=== PATIENT | male | born 1975 | race Caucasian/White ===

== ENCOUNTER 2019-02-23 19:22 | Inpatient (IN) | payer OTHER ==
[2019-02-23 20:54] LABS: ADD MAN DIFF? NO
[2019-02-23 20:55] LABS: WHITE BLOOD COUNT 9.7 10^3/ul (4.8-10.8)
[2019-02-23 20:55] LABS: ADD UMIC NO; BASOPHILS % 0.1 % (0.0-2.0); EOSINOPHILS % 0.4 % (0.0-7.0); HEMATOCRIT 48.4 % (42.0-52.0); HEMOGLOBIN 15.8 g/dl (14.0-18.0); LYMPHOCYTES # 1.8 10^3/ul (0.8-2.9); LYMPHOCYTES % 18.5 % (15.0-51.0); MEAN CORPUSCULAR HEMOGLOBIN 27.1 pg (29.0-33.0); MEAN CORPUSCULAR HGB CONC 32.6 g/dl (32.0-37.0); MEAN CORPUSCULAR VOLUME 82.9 fl (82.0-101.0); MEAN PLATELET VOLUME 9.3 fl (7.4-10.4); MONOCYTE # 0.5 10^3/ul (0.3-0.9); MONOCYTES % 5.1 % (0.0-11.0); NEUTROPHIL # 7.3 10^3/ul (1.6-7.5); NEUTROPHILS % 75.6 % (39.0-77.0); PLATELET COUNT 214 10^3/UL (140-415); RED BLOOD COUNT 5.84 10^6/ul (4.70-6.10); RED CELL DISTRIBUTION WIDTH 12.4 % (11.5-14.5); UR ASCORBIC ACID NEGATIVE (NEGATIVE); UR BILIRUBIN (Dip) NEGATIVE (NEGATIVE); UR BLOOD (Dip) NEGATIVE (NEGATIVE); UR CLARITY CLEAR (CLEAR); UR COLOR YELLOW (YELLOW); UR GLUCOSE (Dip) NEGATIVE (NEGATIVE); UR KETONES (Dip) NEGATIVE (NEGATIVE); UR LEUKOCYTE ESTERASE (Dip) NEGATIVE Leu/ul (NEGATIVE); UR NITRITE (Dip) NEGATIVE (NEGATIVE); UR SPECIFIC GRAVITY (Dip) 1.014 (1.003-1.030); UR TOTAL PROTEIN (Dip) NEGATIVE (NEGATIVE); UR UROBILINOGEN (Dip) NEGATIVE (NEGATIVE)
[2019-02-23] MEDS: SOD CHLORIDE 0.9% 1,000 ML IV (21:02)
[2019-02-23 21:06] LABS: ALANINE AMINOTRANSFERASE 73 IU/L (13-69); ALBUMIN 4.7 g/dl (3.3-4.9); ALBUMIN/GLOBULIN RATIO 1.23; ALKALINE PHOSPHATASE 94 IU/L (42-121); ANION GAP 10 (5-13); ASPARTATE AMINO TRANSFERASE 40 IU/L (15-46); BILIRUBIN,INDIRECT 0.8 mg/dl (0-1.1); BILIRUBIN,TOTAL 0.8 mg/dl (0.2-1.3); BLOOD UREA NITROGEN 11 mg/dl (7-20); CALCIUM 9.8 mg/dl (8.4-10.2); CARBON DIOXIDE 30 mmol/L (21-31); CHLORIDE 104 mmol/L (97-110); CREATININE 0.96 mg/dl (0.61-1.24); Estimated GFR > 60 mL/min (>60); GLUCOSE 99 mg/dl (70-220); LIPASE 64 U/L (23-300); POTASSIUM 3.9 mmol/L (3.5-5.1); SODIUM 144 mmol/L (135-144); TOTAL PROTEIN 8.5 g/dl (6.1-8.1)
[2019-02-23] MEDS: DICYCLOMINE 20 MG INJ IM (21:24)
[2019-02-23] MEDS ORDERED: ONDANSETRON 4 MG INJ (22:27)
[2019-02-23] MEDS: morphine 4 MG/ML VIAL IV ×2 (22:28→23:18)
[2019-02-23] MEDS: PIPER-TAZO 3.375 GM IV (PMX) 100 ML IVPB (23:18)
[2019-02-24] MEDS ORDERED: DOCUSATE SODIUM 100 MG CAP PO (00:30)
[2019-02-24] MEDS: HEPARIN 5,000 UNIT/1 ML VIAL SC (00:30)
[2019-02-24] MEDS ORDERED: ONDANSETRON 4 MG INJ IV ×3 (00:30→12:00)
[2019-02-24] MEDS ORDERED: NACL 0.9% 3 ML SYG IV (00:30)
[2019-02-24] MEDS ORDERED: ACETAMINOPHEN 325 MG TAB PO ×2 (00:30)
[2019-02-24] MEDS: D5W-0.45 NACL + KCL 20 MEQ 1,000 ML IV ×3 (01:18→20:07)
[2019-02-24] MEDS: FAMOTIDINE 20 MG INJ IV ×3 (01:26→20:51)
[2019-02-24] MEDS: morphine 2 MG INJ IV (01:56)
[2019-02-24 06:25] LABS: ADD MAN DIFF? NO
[2019-02-24 06:35] LABS: WHITE BLOOD COUNT 7.8 10^3/ul (4.8-10.8)
[2019-02-24 06:35] LABS: BASOPHILS % 0.3 % (0.0-2.0); EOSINOPHILS # 0.1 10^3/ul (0.0-0.5); EOSINOPHILS % 0.9 % (0.0-7.0); HEMATOCRIT 43.4 % (42.0-52.0); HEMOGLOBIN 14.1 g/dl (14.0-18.0); LYMPHOCYTES # 1.8 10^3/ul (0.8-2.9); LYMPHOCYTES % 23.7 % (15.0-51.0); MEAN CORPUSCULAR HGB CONC 32.5 g/dl (32.0-37.0); MEAN PLATELET VOLUME 9.5 fl (7.4-10.4); MONOCYTE # 0.4 10^3/ul (0.3-0.9); MONOCYTES % 5.7 % (0.0-11.0); NEUTROPHIL # 5.4 10^3/ul (1.6-7.5); NEUTROPHILS % 69.1 % (39.0-77.0); PLATELET COUNT 174 10^3/UL (140-415); RED BLOOD COUNT 5.23 10^6/ul (4.70-6.10); RED CELL DISTRIBUTION WIDTH 12.4 % (11.5-14.5)
[2019-02-24 06:54] LABS: INR 1.01; PROTIME 13.4 Sec (11.9-14.9)
[2019-02-24 07:05] LABS: ANION GAP 8 (5-13); BLOOD UREA NITROGEN 10 mg/dl (7-20); CARBON DIOXIDE 30 mmol/L (21-31); CHLORIDE 105 mmol/L (97-110); Estimated GFR > 60 mL/min (>60); GLUCOSE 97 mg/dl (70-220); POTASSIUM 4.3 mmol/L (3.5-5.1); SODIUM 143 mmol/L (135-144)
[2019-02-24 07:10] LABS: FREE THYROXINE INDEX (Calc) 3.52 ug/ml (0.65-3.89); T3 UPTAKE 34.9 % (23.5-40.5); T4 (THYROXINE) 10.1 ug/dl (5.5-11.0)
[2019-02-24] MEDS ORDERED: morphine 2 MG INJ IV ×2 (08:00→12:00)
[2019-02-24] MEDS ORDERED: FENTAnyl 50 MCG/ML VIAL IV ×2 (10:30)
[2019-02-24] MEDS ORDERED: ALBUTEROL 0.083% (NEB) 2.5 MG/3 ML AMP HHN (10:30)
[2019-02-24] MEDS ORDERED: METOCLOPRAMIDE 10 MG INJ IV (10:30)
[2019-02-24] MEDS ORDERED: DIPHENHYDRAMINE 50 MG INJ IV (10:30)
[2019-02-24] MEDS ORDERED: LIDOCAINE 2% (SDV) 5 ML INJ (10:48)
[2019-02-24] MEDS ORDERED: ROPIVACAINE 0.5 % 30 ML VIAL (10:48)
[2019-02-24] MEDS ORDERED: FENTAnyl 50 MCG/ML VIAL (10:48)
[2019-02-24] MEDS ORDERED: DEXAMETHASONE 4 MG/ML 5 ML INJ (10:57)
[2019-02-24] MEDS: BUPIVACAINE 0.25%/EPI (SDV) 30 ML INJ (11:34)
[2019-02-24] MEDS ORDERED: SUGAMMADEX SODIUM 200 MG/2 ML VIAL IV (11:36)
[2019-02-24] MEDS ORDERED: PROPOFOL 40 ML (11:36)
[2019-02-24] MEDS ORDERED: CEFAZOLIN 1 GM INJ (11:36)
[2019-02-24] MEDS ORDERED: SUCCINYLCHOLINE CHLORIDE 100 MG/5 ML SYG IV (11:36)
[2019-02-24] MEDS ORDERED: ROCURONIUM 50 MG INJ (11:36)
[2019-02-24] MEDS ORDERED: OXYCODONE/ACETAMINOPHEN (5/325) TAB PO ×2 (12:00)
[2019-02-24] MEDS: ONDANSETRON 4 MG INJ IV (12:11)
[2019-02-24] MEDS: MEPERIDINE 25 MG INJ IV (12:11)
[2019-02-24] MEDS: HYDROmorphONE 1 MG/5 ML IV SYRINGE IV ×3 (12:11→12:25)
[2019-02-24] MEDS: FENTAnyl 50 MCG/ML VIAL IV ×2 (12:25→12:44)
[2019-02-24] MEDS: HYDROmorphONE 1 MG/ML SYG IV ×4 (13:48→21:27)
[2019-02-24] MEDS: ZOLPIDEM 5 MG TAB PO (23:56)
[2019-02-25] MEDS: HYDROmorphONE 1 MG/ML SYG IV ×4 (02:00→10:52)
[2019-02-25] MEDS: ZOLPIDEM 5 MG TAB PO (02:43)
[2019-02-25] MEDS: D5W-0.45 NACL + KCL 20 MEQ 1,000 ML IV (03:51)
[2019-02-25 06:24] LABS: ADD MAN DIFF? NO
[2019-02-25 06:25] LABS: BASOPHILS % 0.1 % (0.0-2.0); EOSINOPHILS % 0.1 % (0.0-7.0); HEMATOCRIT 43.2 % (42.0-52.0); HEMOGLOBIN 14.1 g/dl (14.0-18.0); LYMPHOCYTES # 1.3 10^3/ul (0.8-2.9); LYMPHOCYTES % 9.6 % (15.0-51.0); MEAN CORPUSCULAR HGB CONC 32.6 g/dl (32.0-37.0); MEAN CORPUSCULAR VOLUME 82.6 fl (82.0-101.0); MEAN PLATELET VOLUME 9.5 fl (7.4-10.4); MONOCYTE # 0.8 10^3/ul (0.3-0.9); MONOCYTES % 5.7 % (0.0-11.0); NEUTROPHIL # 11.1 10^3/ul (1.6-7.5); NEUTROPHILS % 83.9 % (39.0-77.0); PLATELET COUNT 206 10^3/UL (140-415); RED BLOOD COUNT 5.23 10^6/ul (4.70-6.10); RED CELL DISTRIBUTION WIDTH 12.4 % (11.5-14.5)
[2019-02-25 06:25] LABS: WHITE BLOOD COUNT 13.3 10^3/ul (4.8-10.8)
[2019-02-25] MEDS: FAMOTIDINE 20 MG INJ IV (08:45)
== END 2019-02-25 14:30 | disposition home or self-care (01) | DRG 339 ==
LOC: PP2 23:44 → E/R 19:22
PROC: 0DTJ4ZZ Resection of Appendix, Percutaneous Endoscopic Approach (ICD-10-PCS; principal; 2019-02-24 10:41)
DX: K35.32 Acute appendicitis with perforation, localized peritonitis, and gangrene, without abscess (principal); Z68.41 Body mass index [BMI] 40.0-44.9, adult; E66.01 Morbid (severe) obesity due to excess calories; Z87.891 Personal history of nicotine dependence
CPT/HCPCS: 36415; 74176; 80048; 80053; 81003; 83036; 83690; 84436; 84479; 85025; 85610; 88304; 96372; 96374; 96375; 96376; 99285-25